=== PATIENT | male | born 1960 | race Caucasian/White ===

== ENCOUNTER 2019-05-28 12:46 | Emergency (ER) | payer OTHER ==
[2019-05-28 13:07] LABS: ADD MAN DIFF? NO
[2019-05-28 13:10] LABS: ABNORMAL IP MESSAGE 1; BASOPHILS % 0.2 % (0.0-2.0); EOSINOPHILS # 0.2 10^3/ul (0.0-0.5); EOSINOPHILS % 4.5 % (0.0-7.0); HEMATOCRIT 48.3 % (42.0-52.0); HEMOGLOBIN 16.9 g/dl (14.0-18.0); LYMPHOCYTES # 1.2 10^3/ul (0.8-2.9); LYMPHOCYTES % 28.9 % (15.0-51.0); MEAN CORPUSCULAR HEMOGLOBIN 34.3 pg (29.0-33.0); MEAN CORPUSCULAR VOLUME 98.2 fl (82.0-101.0); MEAN PLATELET VOLUME 10.5 fl (7.4-10.4); MONOCYTE # 0.2 10^3/ul (0.3-0.9); NEUTROPHIL # 2.5 10^3/ul (1.6-7.5); NEUTROPHILS % 61.2 % (39.0-77.0); PLATELET COUNT 92 10^3/UL (140-415); POSITIVE DIFF @See below; RED BLOOD COUNT 4.92 10^6/ul (4.70-6.10); RED CELL DISTRIBUTION WIDTH 14.2 % (11.5-14.5)
[2019-05-28] MEDS: SOD CHLORIDE 0.9% 1,000 ML IV (13:15)
[2019-05-28] MEDS: ONDANSETRON 4 MG INJ IV ×2 (13:15→14:09)
[2019-05-28] MEDS: morphine 4 MG/ML VIAL IV (13:15)
[2019-05-28 13:33] LABS: ALANINE AMINOTRANSFERASE 54 IU/L (13-69); ALKALINE PHOSPHATASE 163 IU/L (42-121); ASPARTATE AMINO TRANSFERASE 76 IU/L (15-46); BLOOD UREA NITROGEN 14 mg/dl (7-20); CALCIUM 8.9 mg/dl (8.4-10.2); CHLORIDE 110 mmol/L (97-110); Estimated GFR > 60 mL/min (>60); GLUCOSE 314 mg/dl (70-220); LIPASE 178 U/L (23-300); POTASSIUM 3.9 mmol/L (3.5-5.1); SODIUM 138 mmol/L (135-144); TOTAL PROTEIN 7.6 g/dl (6.1-8.1)
[2019-05-28 13:34] LABS: ALBUMIN 3.5 g/dl (3.3-4.9); ALBUMIN/GLOBULIN RATIO 0.85; ANION GAP 8 (5-13); CARBON DIOXIDE 20 mmol/L (21-31)
[2019-05-28 13:43] LABS: TROPONIN-I < 0.012 ng/ml (0.000-0.120)
[2019-05-28] MEDS: METOCLOPRAMIDE 10 MG INJ IV (15:21)
[2019-05-28 15:23] LABS: D-DIMER 904.35 ng/ml (<460)
[2019-05-28 16:04] LABS: ADD UMIC NO; UR ASCORBIC ACID 40 mg/dL (NEGATIVE); UR BILIRUBIN (Dip) NEGATIVE (NEGATIVE); UR BLOOD (Dip) NEGATIVE (NEGATIVE); UR CLARITY CLEAR (CLEAR); UR COLOR YELLOW (YELLOW); UR GLUCOSE (Dip) 3+ mg/dL (NEGATIVE); UR KETONES (Dip) NEGATIVE (NEGATIVE); UR LEUKOCYTE ESTERASE (Dip) NEGATIVE Leu/ul (NEGATIVE); UR NITRITE (Dip) NEGATIVE (NEGATIVE); UR SPECIFIC GRAVITY (Dip) 1.011 (1.003-1.030); UR TOTAL PROTEIN (Dip) NEGATIVE (NEGATIVE); UR UROBILINOGEN (Dip) NEGATIVE (NEGATIVE)
[2019-05-28] MEDS: IOHEXOL 350MG/ML 50 ML BTL (16:13)
[2019-05-28] MEDS: IOHEXOL 100 ML (16:14)
[2019-05-28] MEDS: SOD CHLORIDE 0.9% 100 ML (16:14)
[2019-05-28 17:29] LABS: AADO2 Arterial 217.3 mmHg (7.0-24.0); Allen Test ACCEPTAB; Arterial Base Excess -3.9 mmol/L (-3.0-3); Arterial Blood Gas Oxygen Sat 95.4 mmHG (95.0-98.0); Arterial Fraction of Oxyhgb 94.1 % (93.0-99.0); Arterial HCO3 17.5 mmol/L (22.0-26.0); Arterial MetHb 0.4 % (0.0-1.5); Arterial pCO2 25.2 mmhg (35-45); MODE MASK - SIMPLE; Site Right Radial
[2019-05-28] MEDS: ACETAMINOPHEN 325 MG TAB PO (22:41)
== END 2019-05-28 23:03 | disposition short-term general hospital (02) ==
LOC: E/R 12:46
DX: J96.01 Acute respiratory failure with hypoxia (principal); R11.2 Nausea with vomiting, unspecified; E11.65 Type 2 diabetes mellitus with hyperglycemia; Z79.4 Long term (current) use of insulin; Z87.19 Personal history of other diseases of the digestive system; Z87.891 Personal history of nicotine dependence
CPT/HCPCS: 36415; 36600; 71045; 71275; 75635; 76705; 80053; 81003; 82803; 83690; 84484; 85025; 85378; 93005; 96374; 96375; 96376; 99285-25